=== PATIENT | female | born 1945 | race Caucasian/White ===

== ENCOUNTER 2022-10-01 07:20 | Emergency (ER) | payer MEDICARE ==
[~2022-10-01] VITALS: Ht 162.6 cm; Wt 53.1 kg
[2022-10-01 07:53] LABS: CLARITY,URINE CLOUDY (CLEAR); COLOR,URINE YELLOW (YELLOW)
[2022-10-01 07:54] LABS: KETONES,URINE NEGATIVE (NEGATIVE); LEUKOCYTE ESTERASE ,URINE LARGE (NEGATIVE); NITRITE,URINE POSITIVE (NEGATIVE); PROTEIN,URINE DIPSTICK 2+ (NEGATIVE); URINE UROBILINOGEN 0.2 mg/dL (0.2 - 1)
[2022-10-01 08:12] LABS: BACTERIA,URINE MODERATE /HPF; EPITHELIAL CELLS,URINE MODERATE /LPF; WBC,URINE (MAN) >50 /HPF (0-5)
[2022-10-01] MEDS ORDERED: CEPHALEXIN500 MG PO (08:22)
[2022-10-01] MEDS ORDERED: CEFDINIR300 MG PO (08:25)
== END 2022-10-01 08:28 | disposition home or self-care (01) ==
LOC: ER 07:28
DX: R50.9 Fever, unspecified (principal); N39.0 Urinary tract infection, site not specified; R30.0 Dysuria
CPT/HCPCS: 81001; 99283